=== PATIENT | male | born 1995 | race Caucasian/White ===

== ENCOUNTER 2017-11-14 19:36 | Emergency (ER) | payer BC, SELFPAY ==
[2017-11-14 19:37] VITALS: BP 139/74; PULSE 88; RESP 16; TEMP 35.9; O2SAT 99; BMI 27.5
[2017-11-14] MEDS: Naproxen 250 MG Tablet 500 MG PO (20:37)
[2017-11-14 21:24] LABS: Color, Urine Yellow (Yellow); Glucose, Dipstick Normal (Normal); Ketone-Dipstick Negative (Negative); Leukocyte Esterase-Dipstick Negative /ul (Negative); Nitrite-Dipstick Negative (Negative); Occult Blood-Urine 10 /ul (Negative); Protein-Dipstick Negative (Negative); Urine Bilirubin Dipstick Negative (Negative); Urine Clarity Clear (Clear); Urine Urobilinogen Normal (Normal)
[2017-11-14 21:35] LABS: Bacteria 0 SEEN /hpf (None Seen); Mucous, Urine 0 SEEN /hpf (<or=2+); Red Blood Cells-Urine 0 SEEN /hpf (0-5); Squamous Epithelial Cells - UA 0 SEEN /hpf (0-5); White Blood Cells 0 SEEN /hpf (0-5)
--- NOTE | 2017-11-14 22:01 | ED.VISSUMM ---
- ER Visit Summary Date of Service: 11/14/17 Chief Complaint: Back pain History of Present Illness: The patient is a 22 M with no primary care physician. He reports he has pain in the left side of his back began 5 days ago. He describes it as a pressure and pulling pain. Is 9 out of 10 at worst and 5 out of 10 currently. Is worsened by twisting or turning to the left. Is relieved by sleep. She had nausea without vomiting. No diarrhea. Has a frequent urination, but no dysuria or hematuria. Physical Examination: Vitals: Stable. Afebrile. General: A&O x 3. NAD. Cardiovascular exam: Regular rate and rhythm, no murmur, rub or gallop. Respiratory exam: Clear to auscultation bilaterally. No wheezes or stridor. Abdominal exam: Soft, nontender, nondistended, normal bowel sounds. No peritoneal signs. Back: Mild tenderness palpation over the left paraspinous muscular and lumbar region. No point tenderness. Negative straight leg bilaterally. 5/5 DF, PF, EHL bilaterally. Normal sensation to light touch throughout. Extremity: No clubbing, cyanosis, or edema. Test Results: UA is negative Emergency Department Course and Treatment: Patient was treated naproxen is resting comfortably. Treatment Plan: Patient will be discharged on naproxen. Instructed to follow the lacerations clinic in 1 week if not improving. Disposition: To home in improved and stable condition. Impression: 1. Lumbar strain. This note was generated with [employer] dictation software. It may contain incorrect words, spelling, and punctuation that were not noted in review of the chart prior to signing ED Disposition - Plan for ED Patient: Disposition: Home or Assisted Living Chief Complaint: Flank Pain Instructions: ED Sprain Strain Lumbar Prescriptions: Naproxen [Naprosyn] 500 mg PO BID #20 tablet Referrals: Doris Lozoya [NON-STAFF] - 1 Week if not improving
[2017-11-14 22:32] VITALS: BP 119/73; PULSE 70; RESP 16; O2SAT 100
== END 2017-11-14 22:35 | disposition home or self-care (01) ==
LOC: ED 20:32
PROVIDERS: Emergency Provider Emergency Medicine
DX: S39.012A Strain of muscle, fascia and tendon of lower back, initial encounter (principal); X58.XXXA Exposure to other specified factors, initial encounter; Y93.9 Activity, unspecified; Y92.9 Unspecified place or not applicable; Z72.0 Tobacco use
CPT/HCPCS: 81001; 99283